=== PATIENT | female | born 1965 | race Caucasian/White ===

== ENCOUNTER → 2020-05-21 | Outpatient (CLI) | payer BC ==
[~2020-05-21] VITALS: Ht 167.6 cm; Wt 68.0 kg
[~2020-05-21] MED LIST: HYDROCODON-ACE1 EAC7 PO; IRBESARTAN-HCT1 EAC1 PO
--- NOTE | ~2020-05-21 | HPC ---
[facility] [address] [address] PAIN MANAGEMENT CONSULTATION Name: ELEANOR TRAN Room #: REG [facility].#: [id number] Admission: 05/21/20 Attend Phys: Alphonso Saleh MD Discharge: Date of : 61 Report #: [id number] THIS REPORT FOR: cc: Angie Leahy II, MD, II,Angie Saleh,Alphonso Ngo MD ~ CC: ANGIE Saleh DATE OF SERVICE: 05/21/2020 CHIEF COMPLAINT: Severe L5-S1 radiculopathy. HISTORY OF PRESENT ILLNESS: The patient is a pleasant 54-year-old who was lifting dog crates and other heavy objects a week and a half ago and developed sudden onset of excruciating pain in her back and right leg the next day. She has been basically incapacitated since, taking up to 10-12 hydrocodone a day just to keep the pain at bay. She has been moving as she has been asked and has tried to do some gentle exercises, but the pain is just too severe. The pain follows a classic radicular pattern into the leg. She saw Dr. Leahy who gave her medication for pain and asked her to be seen for possible treatment of lumbar radiculopathy and radiculitis. She denies numbness or weakness. This is a first episode of pain like this. She has never had an injury of this sort or pain of this intensity. She scores it as a 10/10. MEDICATIONS: Hydrocodone 5/325, 2 tablets every 4 hours, irbesartan and hydrochlorothiazide. ALLERGIES: PENICILLIN, ASPIRIN, IBUPROFEN. PAST MEDICAL HISTORY: Unremarkable except for hypertension. REVIEW OF SYSTEMS: Negative except for current symptoms of pain. SOCIAL HISTORY: She denies use of tobacco. She normally will drink alcohol, but has not been drinking while taking opioids. 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 She is with children. PHYSICAL EXAMINATION: GENERAL: Pleasant female, alert and oriented. VITAL SIGNS: Blood pressure 137/88, heart rate 60, respirations 16, O2 sat 100. [facility] [address] [place] [address] PAIN MANAGEMENT CONSULTATION Name: ELEANOR TRAN Room #: REG [facility].#: [id number] Admission: 05/21/20 Attend Phys: Alphonso Saleh MD Discharge: Date of : 61 Report #: [id number] CHEST: Clear. CARDIAC: Rhythm is regular. MUSCULOSKELETAL: Examination of the spine reveals mild tenderness across the lumbosacral segment to the right. It does not extend into the sacroiliac joint. She has minimal tenderness over the piriformis. Straight leg raising is positive at approximately 45 degrees in the supine position. Deep tendon reflexes are 2+, knees and ankle. MRI was ordered and reviewed. It shows a bulging disk at L4-L5 causing some minimal foraminal tapering. There is no impingement upon the canal. Axial images from T12 through S1 are relatively normal in appearance. IMPRESSION: Severe lumbar radiculitis. Occasionally, this is a result of an early tear in the annulus. Some of the inner portion of the disk may create inflammatory response consistent with her symptoms. An epidural injection can do quite a bit to help that. Normally, we would give her time to allow this to heal on its own, but she is so incapacitated and taking so much pain medication that I have agreed today that it is reasonable to go ahead with a lumbar epidural steroid injection with hopes that it will provide enough relief that she can get off pain medicine and get back to work. Potential risks and benefits of the procedure were explained in detail. She has asked me to proceed. IMPRESSION: L5 radiculopathy on the right. PROCEDURE: L4-L5 epidural injection using a right paramedian approach. After informed consent, she was taken to fluoroscopic suite, placed prone, skin prepped with ChloraPrep. Skin anesthetized over the L4-L5 interspace. A 20-gauge Tuohy epidural needle advanced first attempt into the epidural space with loss of resistance. There was no blood or CSF aspirated. A 1 mL of Omnipaque injected. Good spread of dye observed into the epidural space to the right of midline, was followed by 3 mL of 0.5% lidocaine mixed with 80 mg triamcinolone. She tolerated the procedure well and was observed for 45 minutes and discharged. Followup visit planned if necessary. I am hopeful that she will not need to return. By: [id number] Alphonso Saleh MD /nt
[2020-05-21 14:15] VITALS: BP 137/88
--- NOTE | 2020-05-21 14:26 | NUR ---
Pain Clinic Assessment: 1. History of Osteoarthritis: Not Applicable History of Rheumatoid Arthritis: Not Applicable 2. Height: 5 ft. 6 in. 167.6 cm. Weight: 150.0 lb. oz. 68.040 kg. Patient's BMI: 24.2 3. Vital Signs: BP: 137/88 Pulse: 60 Resp: 16 Temp: 02 Sat: 100 ECG Mon: 4. Pain Intensity: 8-9 5. Fall Risk: Dizziness: N Needs help standing or walking: N Fallen in the last 3 months: N Fall risk comments: 6. Patient on Blood Thinner: None 7. History of Hypertension: Y 8. Opioid Therapy greater than 6 weeks: N Opiate Contract Signed: 9. Risk Assessment Tool Provided: 0-LOW RISK 10. Functional Assessment Tool: 66/70 11. Recreational Drug Use: Never Drug Type: Tobacco Use: Never Smoker Tobacco Type: Amount or Packs/day: How Many Years: Alcohol Use: Yes Frequency: Daily Quant: ABOUT 2; NOT DRINKING WHILE ON OPIOIDS
== END | disposition home or self-care (01) ==
LOC: PAIN 05-20 11:07
PROVIDERS: ATTEND Anesthesiology Pain Medicine
DX: M54.16 Radiculopathy, lumbar region (principal); I10 Essential (primary) hypertension; Z98.890 Other specified postprocedural states; Z88.0 Allergy status to penicillin; Z79.899 Other long term (current) drug therapy; Z79.891 Long term (current) use of opiate analgesic; Z90.49 Acquired absence of other specified parts of digestive tract; Z90.710 Acquired absence of both cervix and uterus